=== PATIENT | female | born 1980 | race Caucasian/White ===

== ENCOUNTER → 2018-04-06 | Outpatient (REF) | payer OTHER ==
[2018-04-06 20:00] LABS: CHLAMYDIA DNA AMPLIFICATION NEGATIVE (NEGATIVE); GC DNA AMPLIFICATION NEGATIVE (NEGATIVE)
== END ==
LOC: M SFHCLERA 09:34
DX: N30.01 Acute cystitis with hematuria (principal)
CPT/HCPCS: 87186

== ENCOUNTER 2020-10-14 16:15 | Emergency (ER) | payer OTHER ==
[~2020-10-14] VITALS: Ht 167.6 cm; Wt 101.4 kg
[2020-10-14] MEDS ORDERED: CETI10CH PO (16:24)
[2020-10-14] MEDS ORDERED: BOOSTRIX/ADACEL VACCINE (DIPHTH/PERTUSS/ACELL/TETANUS) 0.5ML SYR IM ONE (17:55)
[2020-10-14] MEDS ORDERED: LIDOCAINE W/EPINEPHRINE 1% 20ML VIAL SC ONE (17:55)
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
[2020-10-14] MEDS ORDERED: NEOSPORIN OINT 0.9 GM PKT TOP ONE (19:05)
[2020-10-14] MEDS ORDERED: BACI500O21 TOP (19:05)
[2020-10-14] MEDS ORDERED: CYCLOBENZAPRINE 10MG TABLET PO ONE (19:05)
[2020-10-14] MEDS ORDERED: CYCL-707 PO (19:05)
[2020-10-14 19:10] VITALS: BP 132/81
== END 2020-10-14 19:29 | disposition home or self-care (01) ==
LOC: M ED 16:15
DX: S16.1XXA Strain of muscle, fascia and tendon at neck level, initial encounter (principal); S39.012A Strain of muscle, fascia and tendon of lower back, initial encounter; S40.021A Contusion of right upper arm, initial encounter; S01.81XA Laceration without foreign body of other part of head, initial encounter; T14.8XXA Other injury of unspecified body region, initial encounter; V49.49XA Driver injured in collision with other motor vehicles in traffic accident, initial encounter; Y92.410 Unspecified street and highway as the place of occurrence of the external cause; J30.2 Other seasonal allergic rhinitis; Z79.899 Other long term (current) drug therapy; Z88.0 Allergy status to penicillin; Z88.1 Allergy status to other antibiotic agents; Z88.2 Allergy status to sulfonamides

== ENCOUNTER → 2020-10-18 | Outpatient (CLI) | payer OTHER ==
[~2020-10-18] MED LIST: BACI500O21 TOP; CETI10CH PO; CYCL-707 PO
--- NOTE | 2020-10-18 16:54 | REP ---
INDICATION: PAIN. COMPARISON: None. TECHNIQUE: Plain film of the lumbar spine includes AP lateral and obliques. FINDINGS: No evidence of fracture or subluxation. There is only minimal degenerative disc disease. Oblique views without evidence of osseous foraminal stenosis. Soft tissues appear unremarkable. IMPRESSION: No acute findings. Normal examination. If symptoms persist, MRI recommended for further evaluation. <Electronically signed by Anthony Bullard > 10/18/20 [id number]
== END ==
LOC: M WUC 15:44
PROVIDERS: ATTEND Internal Medicine
DX: M54.5 Low back pain (principal)

== ENCOUNTER → 2022-06-26 | Outpatient (REF) | payer OTHER | LOC: M PLALAB 08:40 | PROVIDERS: ATTEND Nurse Practitioner Family | DX: Z12.4 Encounter for screening for malignant neoplasm of cervix (principal) | CPT/HCPCS: 87624; G0123 ==

== ENCOUNTER → 2022-07-12 | Outpatient (CLI) | payer OTHER | LOC: M RAD 07:39 | PROVIDERS: ATTEND Physician Assistant Surgical | DX: M54.16 Radiculopathy, lumbar region (principal) ==

== ENCOUNTER → 2022-08-23 | Outpatient (CLI) | payer OTHER | LOC: M PLAIMG 12:30 | PROVIDERS: ATTEND Physician Assistant Surgical | DX: M75.41 Impingement syndrome of right shoulder (principal) ==

== ENCOUNTER → 2022-09-17 | Outpatient (CLI) | payer OTHER ==
[2022-09-17 17:10] LABS: PLATELET COUNT, AUTOMATED 368 10^3/uL (150-450)
[2022-09-17 17:37] LABS: COLLAGEN EPINEPHRINE 152 SECONDS (74-162)
[2022-09-17 17:40] LABS: HCG, SERUM QUALITATIVE NEGATIVE (NEGATIVE)
[2022-09-17 18:00] LABS: INR 0.93; PROTHROMBIN TIME 12.7 SECONDS (12.5-14.5)
[2022-09-17 18:01] LABS: PARTIAL THROMBOPLASTIN TIME 24.8 SECONDS (24.8-34.2)
== END ==
LOC: M LAB 16:21
PROVIDERS: ATTEND Physical Medicine & Rehabilitation
DX: Z01.818 Encounter for other preprocedural examination (principal)

== ENCOUNTER → 2022-10-18 | Outpatient (CLI) | payer OTHER ==
[~2022-10-18] MED LIST changes: +ISOVUE-300 61% 100ML VIAL As Ordered ONE; +LIDOCAINE 1% MDV 20ML VIAL As Ordered ONE; +methylPREDNISolone SUSP 40MG/ML 1ML VIAL (DEPO MEDROL) As Ordered ONE
== END ==
LOC: M RAD 13:58
PROVIDERS: ATTEND Physician Assistant Surgical
DX: M75.41 Impingement syndrome of right shoulder (principal)
CPT/HCPCS: 20610; 77002; J1030; Q9967

== ENCOUNTER → 2023-07-21 | Outpatient (CLI) | payer OTHER ==
[~2023-07-21] MED LIST changes: -ISOVUE-300 61% 100ML VIAL As Ordered ONE; -LIDOCAINE 1% MDV 20ML VIAL As Ordered ONE; -methylPREDNISolone SUSP 40MG/ML 1ML VIAL (DEPO MEDROL) As Ordered ONE
== END ==
LOC: M WHC 13:08
PROVIDERS: ATTEND Nurse Practitioner Family
DX: R10.2 Pelvic and perineal pain (principal); R93.89 Abnormal findings on diagnostic imaging of other specified body structures; Z97.5 Presence of (intrauterine) contraceptive device; R92.8 Other abnormal and inconclusive findings on diagnostic imaging of breast; N60.12 Diffuse cystic mastopathy of left breast